=== PATIENT | male | born 1990 | race Caucasian/White ===

== ENCOUNTER 2016-04-23 19:54 | Emergency (ER) | payer MEDICAID ==
[2016-04-23 20:24] LABS: % IMMATURE GRANULYOCYTES 0.3 % (0.0-1.1); ABSOLUTE IMMATURE GRANULOCYTES 0.03 10^3/uL (0.00-0.10); ADD DIFF? NO; ADD MORPH? NO; ADD SCAN? NO; ATYPICAL LYMPHOCYTE FLAG 0 (0-99); FRAGMENT RBC FLAG 0 (0-99); HEMATOCRIT 44.7 % (40.0-51.0); HEMOGLOBIN 15.1 g/dL (13.7-17.5); LEFT SHIFT FLG 0 (0-99); LIPEMIA HEMOLYSIS FLAG 90 (0-99); MEAN CELL HEMOGLOBIN CONCENTR. 33.8 g/dL (32.4-36.7); MEAN CELL VOLUME 85.8 fL (81.5-99.8); MEAN PLATELET VOLUME 10.7 fL (8.7-11.7); PLATELET CLUMPS FLAG 0 (0-99); PLATELET COUNT 233 10^3/uL (150-400); RED BLOOD CELL COUNT 5.21 10^6/uL (4.40-6.38); RED CELL DISTRIBUTION WIDTH 14.3 % (11.5-15.2)
[2016-04-23 20:47] LABS: ANION GAP 13 mEq/L (8-16); CALCIUM 10.4 mg/dL (8.5-10.4); CARBON DIOXIDE 27 mEq/l (22-31); CHLORIDE 103 mEq/L (97-110); CREATININE 0.9 mg/dL (0.7-1.3); ETHANOL SERUM < 10 mg/dL (0-10); GLOMERULAR FILTRATION RATE > 60; GLUCOSE 95 mg/dL (70-100); POTASSIUM 4.2 mEq/L (3.5-5.2); SALICYLATE < 1.0 mg/dL (2.0-20.0); SODIUM 143 mEq/L (134-144)
--- NOTE | 2016-04-23 21:54 | EDPHY ---
H & P Stated Complaint: WANTS MENTAL HEALTH EVAL , NOT SUICIDAL ... - Personal History Current Tetanus/Diphtheria Vaccine: Yes Current Tetanus Diphtheria and Acellular Pertussis (TDAP): Yes - Medical/Surgical History Hx Asthma: No Hx Chronic Respiratory Disease: No Hx Diabetes: No Hx Cardiac Disease: No Hx Renal Disease: No Hx Cirrhosis: No Hx Alcoholism: No Hx HIV/AIDS: No Hx Splenectomy or Spleen Trauma: No Other PMH: PTSD, BIPOLAR MANIC DEPRESSIVE. psych - Social History Smoking Status: Heavy smoker Time Seen by Provider: 04/23/16 20:04 Constitutional: Initial Vital Signs Temperature (C) 36.9 C 04/23/16 19:58 Heart Rate 82 04/23/16 19:58 Respiratory Rate 18 04/23/16 19:58 Blood Pressure 148/94 H 04/23/16 19:58 O2 Sat (%) 98 04/23/16 19:58 O2 Delivery Mode Room Air Allergies/Adverse Reactions: No Known Allergies Allergy (Verified 04/23/16 20:00) Home Medications: Medication Instructions Recorded Divalproex ER [Depakote ER 500 MG 500 mg PO 04/01/16 (*)] Gabapentin [Neurontin 400 MG (*)] 900 mg PO BID 04/01/16 Haloperidol [Haldol 10 MG (*)] 10 mg PO 04/01/16 Propranolol HCl [Inderal 40mg (*)] 40 mg PO 04/01/16 Mirtazapine [Remeron] 45 mg PO 04/23/16 Quetiapine Fumarate [Seroquel] 200 mg PO 04/23/16 Medical Decision Making ED Course/Re-evaluation: CHIEF COMPLAINT: "I'm hendrix as hell" HISTORY OF PRESENT ILLNESS: The patient is a 25 y/o male, with a history of bipolar disorder and depression, presenting voluntarily for psychiatric evaluation due to aggressive outbursts. He says, "I don't understand my sudden outbursts at people;" "I want to get that under control." He is also asking for resources to a behavior center. He is taking some of his medications appropriately, but has not started some of the other medications he was prescribed. He denies suicidal ideation. Facility has reported they believe his psychiatric issues have become worse than his polysubstance abuse. REVIEW OF SYSTEMS: A 10 point review of systems was performed and is negative with the exception of the elements mentioned in the history of present illness. PHYSICAL EXAM: General Appearance: Alert, well hydrated, appropriate, and non-toxic appearing. Head: Atraumatic without scalp tenderness or obvious injury Eyes: Pupils equal, round, reactive to light and accommodation, EOMI, no trauma , no injection. Ears: Clear bilaterally, no perforation, normal landmarks Nose: Atraumatic, no rhinorrhea, clear. Throat: There is no erythema or exudates, no lesions, normal tonsils, mucus membranes moist. Neck: Supple, 2+ carotid upstroke, non-tender, no lymphadenopathy. Respiratory: No retractions, no distress, no wheezes, and no accessory muscle use. Lungs are clear to auscultation bilaterally. Cardiovascular: Regular rate and rhythm, no murmurs, rubs, or gallops. Bilateral carotid, radial, dorsalis pedis, and posterior tibial pulses intact. Good capillary refill all extremities. Gastrointestinal: Abdomen is soft, non-tender, non-distended, no masses, no rebound, no guarding, no peritoneal signs. Musculoskeletal: Normal active ROM of all extremities, atraumatic. Neurological: Alert, appropriate, and interactive. The patient has normal DTRs and non-focal cranial nerves, motor, sensory, and cerebellar exam. Skin: No rashes, good turgor, no nodules on palpation. PAST MEDICAL HISTORY: PTSD, polysubstance abuse, depression, bipolar disorder 1700mg gabapentin, 1500mg Depakote, IM Zyprexa monthly PAST SURGICAL HISTORY: Noncontributory SOCIAL HISTORY: History of homelessness and substance abuse, on [place] that requires him to be in psychiatric facility DIFFERENTIAL DIAGNOSIS: The differential diagnosis for the patient's depression included but was not limited to functional and major depression, situational depression, medication side effect, drugs, and alcohol abuse. MEDICAL DECISION MAKING: This is a 25 y/o male with a history of bipolar disorder, PTSD, and depression presenting for evaluation of his aggressive outbursts. Due to his homelessness, aggressive behavior, and reduced ability to care for himself, I've placed him on an M1 hold. Plan for standard psychiatric labs then mental health evaluation. His labs are completely normal. Patient is medically clear and evaluation is pending. 2300: Patient care signed out to Dr. Sethi at shift change with evaluation pending. (Akin Vazquez) 2344: Carmelo and has evaluated this patient. Patient is, cooperative. Patient is not suicidal he is not homicidal he is not psychotic is, cooperative he agrees for discharge contract for safety. Patient M1 hold be lifted and be discharged from the emergency room. (Esteban Sethi) - Data Points Laboratory Results: Laboratory Results 04/23/16 20:18 04/23/16 20:18 04/23/16 04/23/16 20:29 20:18 WBC 9.32 10^3/uL (3.80-9.50) RBC 5.21 10^6/uL (4.40-6.38) Hgb 15.1 g/dL (13.7-17.5) Hct 44.7 % (40.0-51.0) MCV 85.8 fL (81.5-99.8) MCH 29.0 pg (27.9-34.1) MCHC 33.8 g/dL (32.4-36.7) RDW 14.3 % (11.5-15.2) Plt Count 233 10^3/uL (150-400) MPV 10.7 fL (8.7-11.7) Neut % (Auto) 62.3 % (39.3-74.2) Lymph % (Auto) 25.0 % (15.0-45.0) [place] % (Auto) 10.7 % (4.5-13.0) Eos % (Auto) 0.9 % (0.6-7.6) Baso % (Auto) 0.8 % (0.3-1.7) Nucleat RBC Rel Count 0.0 % (0.0-0.2) Absolute Neuts (auto) 5.81 10^3/uL (1.70-6.50) Absolute Lymphs (auto) 2.33 10^3/uL (1.00-3.00) Absolute Monos (auto) 1.00 H 10^3/uL (0.30-0.80) Absolute Eos (auto) 0.08 10^3/uL (0.03-0.40) Absolute Basos (auto) 0.07 10^3/uL (0.02-0.10) Absolute Nucleated RBC 0.00 10^3/uL (0-0.01) Immature Gran % 0.3 % (0.0-1.1) Immature Gran # 0.03 10^3/uL (0.00-0.10) Sodium 143 mEq/L (134-144) Potassium 4.2 mEq/L (3.5-5.2) Chloride 103 mEq/L (97-110) Carbon Dioxide 27 mEq/l (22-31) Anion Gap 13 mEq/L (8-16) BUN 18 mg/dL (7-23) Creatinine 0.9 mg/dL (0.7-1.3) Estimated GFR > 60 Glucose 95 mg/dL (70-100) Calcium 10.4 mg/dL (8.5-10.4) Salicylates < 1.0 L mg/dL (2.0-20.0) Urine Opiates Screen NEGATIVE (NEGATIVE) Acetaminophen < 10 L mcg/mL (10.0-30.0) Urine Barbiturates NEGATIVE (NEGATIVE) Ur Phencyclidine Scrn NEGATIVE (NEGATIVE) Ur Amphetamine Screen NEGATIVE (NEGATIVE) U Benzodiazepines Scrn NEGATIVE (NEGATIVE) Urine Cocaine Screen NEGATIVE (NEGATIVE) U Marijuana (THC) Screen NEGATIVE (NEGATIVE) Ethyl Alcohol < 10 mg/dL (0-10) Departure - Departure Disposition: Home, Routine, Self-Care Clinical Impression: Severe major depression Condition: Good Instructions: Depression (ED) Additional Instructions: 1. Return to the emergency room if develops any worsening symptoms questions or concerns. 2.Please follow up with the resources been given to by mental health. Report Scribed for: Akin Vazquez Report Scribed by: Teresita Triplett Date of Report: 04/23/16 Time of Report: 22:10
[2016-04-23] MEDS ORDERED: DIVALPROEX NA 500 MG TAB PO ONE (22:32)
[2016-04-23] MEDS ORDERED: GABAPENTIN 300 MG CAP PO ONE (22:33)
[2016-04-24 00:15] VITALS: BP 135/89; PULSE 76; RESP 16; TEMP 98.2; O2SAT 97
[2016-04-24] MEDS ORDERED: QUEtiapine FUMARATE 200 MG TAB PO ONE (22:34)
== END 2016-04-24 00:20 | disposition home or self-care (01) ==
DX: F32.2 Major depressive disorder, single episode, severe without psychotic features (principal); F17.200 Nicotine dependence, unspecified, uncomplicated
CPT/HCPCS: 80305; G0480

== ENCOUNTER 2016-07-28 08:55 | Emergency (ER) | payer MEDICAID ==
[2016-07-28 09:05] VITALS: BP 130/74; PULSE 75; RESP 16; TEMP 97.9; O2SAT 97
--- NOTE | 2016-07-28 09:29 | EDPHY ---
H & P Time Seen by Provider: 07/28/16 09:10 HPI/ROS: CHIEF COMPLAINT: "I have got a lump on my back" HISTORY OF PRESENT ILLNESS: 26-year-old immunocompetent homeless male complaining of a tender lump in the cleft of his buttocks for the past 3-4 days. No pain with defecation. No fever no chills. No trauma. No flu-like symptoms. Tetanus is out-of-date. PRIMARY CARE PROVIDER: REVIEW OF SYSTEMS: A ten point review of systems was performed and is negative with the exception of the items mentioned in the HPI PHYSICAL EXAM (Prior to examination, patient consented to physical exam, hands were washed and my usual and customary physical exam procedures followed) 1) GENERAL: Well-developed, well-nourished, alert and oriented. Appears to be in no acute distress. 2) HEAD: Normocephalic 3) HEENT: sclera anicteric 4) LUNGS: Breathing comfortably. 5) SKIN: at the cleft of the buttock he has a tender indurated area with no fluctuance and no drainage consistent with pilonidal abscess. No extensions the perianal region Smoking Status: Heavy smoker Constitutional: Initial Vital Signs Temperature (C) 36.6 C 07/28/16 09:03 Heart Rate 75 07/28/16 09:03 Respiratory Rate 16 07/28/16 09:03 Blood Pressure 130/74 H 07/28/16 09:03 O2 Sat (%) 97 07/28/16 09:03 O2 Delivery Mode Room Air Allergies/Adverse Reactions: No Known Allergies Allergy (Verified 04/23/16 20:00) Home Medications: Medication Instructions Recorded Divalproex ER [Depakote ER 500 MG 500 mg PO BID 04/01/16 (*)] Gabapentin [Neurontin 400 MG (*)] 900 mg PO TID 04/01/16 Haloperidol [Haldol 10 MG (*)] 10 mg PO 04/01/16 Propranolol HCl [Inderal 40mg (*)] 40 mg PO 04/01/16 Mirtazapine [Remeron] 45 mg PO 04/23/16 Quetiapine Fumarate [Seroquel] 200 mg PO HS 04/23/16 Cephalexin [Keflex] 500 mg PO TID 10 Days 07/28/16 Sulfamethox/Tmp 800/160 mg 1 tab PO BID@1000,2200 10 Days 07/28/16 [Bactrim Ds] MDM/Departure - MDM Procedures: Procedure: Abscess drainage. The patient's abscess was located on the cleft of the buttocks. I obtained verbal consent from the patient to drain the abscess who was informed about the possibility of bleeding and pain. The abscess was incised with a 11. Scalpel and a mild amount of purulent drainage was expressed. I irrigated the wound . The patient tolerated the procedure well. The procedure was performed by myself. - Depart Disposition: Home, Routine, Self-Care Clinical Impression: Pilonidal abscess Condition: Good Instructions: Pilonidal Cyst (ED) Additional Instructions: Return to the ER if you develop fever, chills, nausea, vomiting or any other symptoms that concern you. Take her medication as prescribed until finished. Prescriptions: Cephalexin [Keflex] 500 mg PO TID 10 Days Sulfamethox/Tmp 800/160 mg [Bactrim Ds] 1 tab PO BID@1000,2200 10 Days Referrals: [facility],. [Clinic] - 1-2 days without fail
[2016-07-28] MEDS ORDERED: TDAP ADULT 0.5 ML INJ (BOOSTRIX) IM ONE (09:31)
== END 2016-07-28 09:46 | disposition home or self-care (01) ==
PROC: 3E0234Z Introduction of Serum, Toxoid and Vaccine into Muscle, Percutaneous Approach (ICD-10-PCS; principal; 2016-07-28)
PROC: 0H98XZZ Drainage of Buttock Skin, External Approach (ICD-10-PCS; principal; 2016-07-28)
DX: L05.01 Pilonidal cyst with abscess (principal); F17.200 Nicotine dependence, unspecified, uncomplicated; Z23 Encounter for immunization

== ENCOUNTER 2016-08-01 18:27 | Emergency (ER) | payer MEDICAID ==
[2016-08-01 18:31] VITALS: O2SAT 96
--- NOTE | 2016-08-01 19:14 | EDPHY ---
H & P Time Seen by Provider: 08/01/16 18:42 HPI/ROS: CHIEF COMPLAINT: Fevers, chills, rectal pain HISTORY OF PRESENT ILLNESS: 26-year-old male presents to the emergency department with pain and swelling to his rectum. The patient was here in the emergency department few days ago and was prescribed antibiotics. He did not fill the antibiotics until last night. He began feeling feverish and chilled 2 days ago. He took some aspirin prior to coming to the hospital. He denies abdominal pain. No urinary difficulties. Normal bowel movements. No chest pain or difficulty breathing. REVIEW OF SYSTEMS: Constitutional: No fever, no chills. Eyes: No double or blurry vision. ENT: No sore throat. Respiratory: No cough, no shortness of breath. Cardiac: No chest pain. Gastrointestinal: No abdominal pain, vomiting or diarrhea. Genitourinary: No dysuria. Musculoskeletal: No neck or back pain. Skin: No rashes. Neurological: No headache. Past Medical/Surgical History: Negative Social History: Single, works as a package car driver Smoking Status: Former smoker Physical Exam: General Appearance: Alert, no distress. Afebrile. Eyes: Pupils equal and round. Extraocular motions are all intact. ENT: Mouth: Mucous membranes moist. Respiratory: No wheezing, rhonchi, or rales, lungs are clear to auscultation. Cardiovascular: Regular rate and rhythm. Gastrointestinal: Abdomen is soft and nontender, no masses, no rebound or guarding, bowel sounds normal. Rectal exam: There is a perirectal abscess on the left buttock superior aspect. It is indurated. It is very tender to palpate. No obvious drainage noted. Neurological: Alert and oriented x 3, cranial nerves II through XII grossly intact Skin: Warm and dry, no rashes. Musculoskeletal: Nontender to palpate along the cervical, thoracic or lumbar spine. Neck is supple. Extremities: Full range of motion and no peripheral edema. Psychiatric: Patient is oriented X 3, there is no agitation. Constitutional: Initial Vital Signs Temperature (C) 36.7 C 08/01/16 18:28 Heart Rate 87 08/01/16 18:28 Respiratory Rate 18 08/01/16 18:28 Blood Pressure 133/70 H 08/01/16 18:28 O2 Sat (%) 96 08/01/16 18:28 O2 Delivery Mode Room Air Allergies/Adverse Reactions: No Known Allergies Allergy (Verified 04/23/16 20:00) Home Medications: Medication Instructions Recorded Divalproex ER [Depakote ER 500 MG 500 mg PO BID 04/01/16 (*)] Gabapentin [Neurontin 400 MG (*)] 900 mg PO TID 04/01/16 Mirtazapine [Remeron] 45 mg PO 04/23/16 Quetiapine Fumarate [Seroquel] 200 mg PO HS 04/23/16 Cephalexin [Keflex] 500 mg PO TID 10 Days 07/28/16 Sulfamethox/Tmp 800/160 mg 1 tab PO BID@1000,2200 10 Days 07/28/16 [Bactrim Ds] Wellbutrin Sr 08/01/16 Medical Decision Making Procedures: Procedure: Abscess drainage. The patient's abscess was located on the left buttock. Risks, benefits, alternatives discussed with the patient and consent obtained. The skin was cleansed with chlorhexidine and a small amount of 1% lidocaine with epinephrine was instilled into the wound. The abscess was incised with a #11 blade and large amount of purulent drainage was expressed. The patient tolerated the procedure well. The procedure was performed by myself. ED Course/Re-evaluation: 26-year-old male presents with rectal pain and feeling fever garcia chilled. On examination the patient has a left perirectal abscess which was opened and drained, see procedure note. The patient was encouraged to take the antibiotics as prescribed. He will continue to soak the wound and elected to do that rather than having packing. Departure - Departure Disposition: Home, Routine, Self-Care Clinical Impression: Perirectal abscess Condition: Good Instructions: Abscess (ED) Additional Instructions: Continue to soak your bottom in warm water for 15-20 minutes ideally every 2-3 hours especially today and tomorrow. Apply antibiotic ointment such as bacitracin, after each soaking. Take Keflex and Bactrim as prescribed. Call [phone] for the results of your wound culture in 48 hours. Referrals: [facility],. [Clinic] - 2-3 days, call for appt.
[2016-08-01 19:27] VITALS: BP 127/81; PULSE 75; RESP 16; TEMP 98.2
== END 2016-08-01 19:27 | disposition home or self-care (01) ==
PROC: 0H98XZZ Drainage of Buttock Skin, External Approach (ICD-10-PCS; principal; 2016-08-01)
DX: K61.1 Rectal abscess (principal); Z87.891 Personal history of nicotine dependence

== ENCOUNTER 2016-09-20 20:16 | Emergency (ER) | payer MEDICAID ==
[2016-09-20 20:36] LABS: % IMMATURE GRANULYOCYTES 0.2 % (0.0-1.1); ABSOLUTE IMMATURE GRANULOCYTES 0.01 10^3/uL (0.00-0.10); ADD DIFF? NO; ADD MORPH? NO; ADD SCAN? NO; ATYPICAL LYMPHOCYTE FLAG 30 (0-99); FRAGMENT RBC FLAG 0 (0-99); HEMATOCRIT 45.1 % (40.0-51.0); HEMOGLOBIN 15.3 g/dL (13.7-17.5); LEFT SHIFT FLG 0 (0-99); LIPEMIA HEMOLYSIS FLAG 90 (0-99); MEAN CELL HEMOGLOBIN 29.9 pg (27.9-34.1); MEAN CELL HEMOGLOBIN CONCENTR. 33.9 g/dL (32.4-36.7); MEAN CELL VOLUME 88.1 fL (81.5-99.8); MEAN PLATELET VOLUME 11.2 fL (8.7-11.7); PLATELET CLUMPS FLAG 0 (0-99); PLATELET COUNT 218 10^3/uL (150-400); RED BLOOD CELL COUNT 5.12 10^6/uL (4.40-6.38); RED CELL DISTRIBUTION WIDTH 13.7 % (11.5-15.2)
[2016-09-20 20:46] LABS: ANION GAP 12 mEq/L (8-16); CALCIUM 9.7 mg/dL (8.5-10.4); CARBON DIOXIDE 24 mEq/l (22-31); CHLORIDE 102 mEq/L (97-110); ETHANOL SERUM < 10 mg/dL (0-10); GLOMERULAR FILTRATION RATE > 60; GLUCOSE 95 mg/dL (70-100); POTASSIUM 3.9 mEq/L (3.5-5.2); SALICYLATE < 1.0 mg/dL (2.0-20.0); SODIUM 138 mEq/L (134-144)
--- NOTE | 2016-09-20 21:35 | EDPHY ---
H & P Stated Complaint: SI - Personal History Current Tetanus/Diphtheria Vaccine: Yes - Medical/Surgical History Hx Asthma: No Hx Chronic Respiratory Disease: No Hx Diabetes: No Hx Cardiac Disease: No Hx Renal Disease: No Hx Cirrhosis: No Hx Alcoholism: No Hx HIV/AIDS: No Hx Splenectomy or Spleen Trauma: No Other PMH: PTSD, BIPOLAR MANIC DEPRESSIVE,. psych, anxiety, - Social History Smoking Status: Former smoker HPI/ROS: Chief complaint: Suicidal ideation History of present illness: This is a 26-year-old male who presents to the emergency department with EMS for suicidal ideation. Patient has a history of multiple psychiatric disorders including anxiety, bipolar and PTSD. He states he has had problems with suicidal ideation in the past. He states he feels like his underlying conditions are not well controlled at this time, he has started having thoughts of killing himself. He has thought about cutting his wrists or taking medications but has not acted at this time. Patient denies homicidal ideation. He denies illness or injury. Review of systems: A 10 point review of systems was obtained and other than described above was negative (Naveed Garsia) - Physical Exam Exam: General Appearance: Alert, nontoxic. Eyes: Pupils equal and round no pallor or injection. ENT, Mouth: Mucous membranes moist. Respiratory: There are no retractions, lungs are clear to auscultation. Cardiovascular: Regular rate and rhythm. Gastrointestinal: Abdomen is soft and nontender, no masses, bowel sounds normal. Neurological: Alert. Strength and sensation intact and symmetrical. Skin: Warm and dry, no rashes. Musculoskeletal: Neck is supple nontender. Extremities are symmetrical, full range of motion. Psychiatric: Patient is cooperative. (Naveed Garsia) Constitutional: Initial Vital Signs Temperature (C) 37.1 C 09/20/16 20:24 Heart Rate 64 09/20/16 20:24 Respiratory Rate 18 09/20/16 20:24 Blood Pressure 155/76 H 09/20/16 20:24 O2 Sat (%) 95 09/20/16 20:24 O2 Delivery Mode Room Air Allergies/Adverse Reactions: No Known Allergies Allergy (Verified 04/23/16 20:00) Home Medications: Medication Instructions Recorded Divalproex ER [Depakote ER 500 MG 1,000 mg PO HS 04/01/16 (*)] Gabapentin [Neurontin 400 MG (*)] 900 mg PO TID 04/01/16 Wellbutrin Sr 08/01/16 FLUoxetine [Prozac 20 MG (*)] 20 mg PO DAILY 09/20/16 traZODone [traZODONE 50MG (*)] 50 mg PO HS 09/20/16 Medical Decision Making ED Course/Re-evaluation: Patient seen under the supervision of my secondary supervising physician Dr. Larissa Cerna. Patient presents to the emergency department for suicidal ideation. He is nontoxic. Afebrile and vital signs are stable. Physical exam is benign and blood studies are unremarkable. He is medically cleared for psychiatric evaluation. This is pending at time of dictation. Care of patient is turned over to my attending physician Dr. Esteban Sethi at end of shift. (Naveed Garsia) 0541AM: Patient has been accepted at [facility]. By Dr. Arnold. EMTALA has been filled out. Appropriate transfer will be set up. No acute events overnight. (Esteban Sethi) Differential Diagnosis: Included but not limited to substance abuse, anxiety, depression, bipolar, schizophrenia (Naveed Garsia) - Data Points Laboratory Results: Laboratory Results 09/20/16 20:25 09/20/16 20:25 09/20/16 09/20/16 09/20/16 20:25 20:25 20:25 WBC 6.24 10^3/uL 10^3/uL (3.80-9.50) RBC 5.12 10^6/uL 10^6/uL (4.40-6.38) Hgb 15.3 g/dL g/dL (13.7-17.5) Hct 45.1 % % (40.0-51.0) MCV 88.1 fL fL (81.5-99.8) MCH 29.9 pg pg (27.9-34.1) MCHC 33.9 g/dL g/dL (32.4-36.7) RDW 13.7 % % (11.5-15.2) Plt Count 218 10^3/uL 10^3/uL (150-400) MPV 11.2 fL fL (8.7-11.7) Neut % (Auto) 52.5 % % (39.3-74.2) Lymph % (Auto) 35.1 % % (15.0-45.0) [place] % (Auto) 8.5 % % (4.5-13.0) Eos % (Auto) 2.7 % % (0.6-7.6) Baso % (Auto) 1.0 % % (0.3-1.7) Nucleat RBC Rel Count 0.0 % % (0.0-0.2) Absolute Neuts (auto) 3.28 10^3/uL 10^3/uL (1.70-6.50) Absolute Lymphs (auto) 2.19 10^3/uL 10^3/uL (1.00-3.00) Absolute Monos (auto) 0.53 10^3/uL 10^3/uL (0.30-0.80) Absolute Eos (auto) 0.17 10^3/uL 10^3/uL (0.03-0.40) Absolute Basos (auto) 0.06 10^3/uL 10^3/uL (0.02-0.10) Absolute Nucleated RBC 0.00 10^3/uL 10^3/uL (0-0.01) Immature Gran % 0.2 % % (0.0-1.1) Immature Gran # 0.01 10^3/uL 10^3/uL (0.00-0.10) Sodium 138 mEq/L mEq/L (134-144) Potassium 3.9 mEq/L mEq/L (3.5-5.2) Chloride 102 mEq/L mEq/L (97-110) Carbon Dioxide 24 mEq/l mEq/l (22-31) Anion Gap 12 mEq/L mEq/L (8-16) BUN 15 mg/dL mg/dL (7-23) Creatinine 1.0 mg/dL mg/dL (0.7-1.3) Estimated GFR > 60 Glucose 95 mg/dL mg/dL (70-100) Calcium 9.7 mg/dL mg/dL (8.5-10.4) Salicylates < 1.0 mg/dL L mg/dL (2.0-20.0) Urine Opiates Screen NEGATIVE (NEGATIVE) Acetaminophen < 10 mcg/mL L mcg/mL (10.0-30.0) Urine Barbiturates NEGATIVE (NEGATIVE) Valproic Acid 42.2 mcg/mL L mcg/mL (50.0-150.0) Ur Phencyclidine Scrn NEGATIVE (NEGATIVE) Ur Amphetamine Screen NEGATIVE (NEGATIVE) U Benzodiazepines Scrn NEGATIVE (NEGATIVE) Urine Cocaine Screen NEGATIVE (NEGATIVE) U Marijuana (THC) Screen NEGATIVE (NEGATIVE) Ethyl Alcohol < 10 mg/dL mg/dL (0-10) Departure - Departure Disposition: Other Psych, Not [place] Clinical Impression: Suicidal ideation Condition: Fair Referrals: NONE *PRIMARY CARE P,. [Primary Care Provider] - As per Instructions
[2016-09-21 07:23] VITALS: BP 112/78; PULSE 76; RESP 16; TEMP 97.5; O2SAT 98
== END 2016-09-21 07:39 ==
LOC: EDUNIT#
DX: R45.851 Suicidal ideations (principal); Z87.891 Personal history of nicotine dependence
CPT/HCPCS: 80305; G0480

== ENCOUNTER 2016-12-26 13:27 | Emergency (ER) | payer MEDICAID ==
[2016-12-26 13:32] VITALS: BP 136/70; PULSE 71; RESP 16; TEMP 97.9; O2SAT 95
--- NOTE | 2016-12-26 13:58 | EDPHY ---
H & P Smoking Status: Former smoker Time Seen by Provider: 12/26/16 13:36 HPI/ROS: CHIEF COMPLAINT: Fall off skateboard, left wrist and left knee injury HISTORY OF PRESENT ILLNESS: 26-year-old male presents to the emergency department with pain in his left wrist and his left knee after he fell off his skateboard at noon yesterday. He was not wearing a helmet. He did not hit his head or lose consciousness. Denies neck or back pain. Denies chest pain or difficulty breathing. He is right-hand dominant. He states that he developed more pain in his left wrist and his left knee few hours after he actually fell. Denies paresthesias in his upper or lower extremities. Denies abdominal pain. He believes his tetanus shot is current. REVIEW OF SYSTEMS: Constitutional: No fever, no chills. Eyes: No double or blurry vision. ENT: No sore throat. Respiratory: No cough, no shortness of breath. Cardiac: No chest pain. Gastrointestinal: No abdominal pain, vomiting or diarrhea. Genitourinary: No dysuria. Musculoskeletal: No neck or back pain. Skin: No rashes. Neurological: No headache. (Louisa,Samantha M) Past Medical/Surgical History: PTSD, bipolar, anxiety (Louisa,Samantha M) Social History: Single (Louisa,Samantha M) Physical Exam: General Appearance: Alert, no distress. No visible signs of trauma to his head. He is mentating normally and answering questions appropriately. Eyes: Pupils equal and round. Extraocular motions are all intact. ENT: Mouth: Mucous membranes moist. Respiratory: No wheezing, rhonchi, or rales, lungs are clear to auscultation. Cardiovascular: Regular rate and rhythm. Gastrointestinal: Abdomen is soft and nontender, no masses, no rebound or guarding, bowel sounds normal. Neurological: Alert and oriented x 3, cranial nerves II through XII grossly intact Skin: Warm and dry, no rashes. Musculoskeletal: Nontender to palpate along the cervical, thoracic or lumbar spine. Neck is supple. Ecchymosis to the anterior, lateral aspect of his neck which the patient states is a "hickey" Extremities: Tender with palpation over his left wrist diffusely especially over the distal ulna. Limited supination secondary to pain. Limited extension of the left wrist secondary to pain. Has superficial abrasions noted to the anterior aspect of his left knee. Diffusely tender to palpate the left knee. No obvious effusion. He is able to do a straight leg raise unassisted. He is able to fully flex his left knee. No obvious ligament instability. Full range of motion of his right upper extremity and right lower extremity. Psychiatric: Patient is oriented X 3, there is no agitation. The (Samantha Jasso) Constitutional: Initial Vital Signs Temperature (C) 36.6 C 12/26/16 13:29 Heart Rate 71 12/26/16 13:29 Respiratory Rate 16 12/26/16 13:29 Blood Pressure 136/70 H 12/26/16 13:29 O2 Sat (%) 95 12/26/16 13:29 O2 Delivery Mode Room Air Allergies/Adverse Reactions: No Known Allergies Allergy (Verified 04/23/16 20:00) Home Medications: Medication Instructions Recorded Divalproex ER [Depakote ER 500 MG 1,000 mg PO HS 04/01/16 (*)] Gabapentin [Neurontin 400 MG (*)] 900 mg PO TID 04/01/16 Wellbutrin Sr 08/01/16 FLUoxetine [Prozac 20 MG (*)] 20 mg PO DAILY 09/20/16 traZODone [traZODONE 50MG (*)] 50 mg PO HS 09/20/16 Celexa 12/26/16 Medical Decision Making - Diagnostics Imaging: I viewed and interpreted images myself Procedures: Patient was placed in Velcro wrist splint and examined post application in good placement with normal SEALER OPERATOR. (Samantha Jasso) ED Course/Re-evaluation: 26-year-old male presents to the emergency department after he fell off his skateboard injuring his left wrist and knee. X-rays reveal no fractures. He was placed in Velcro wrist splint for comfort and support. He is able to ambulate. I do not think knee brace is indicated. He was given orthopedic follow-up. (Samantha Jasso) I did not see this patient while he was in the emergency department. However his care was discussed with the PA while the patient was in the department. I agree with treatment plan and management (Homer Tabares) Departure - Departure Disposition: Home, Routine, Self-Care Clinical Impression: Left wrist sprain, Contusion of left knee, Abrasion of left knee Condition: Good Instructions: Contusion in Adults (ED), Wrist Sprain (ED) Additional Instructions: Activity as tolerated. Wrist splint for comfort and support. Ibuprofen 600 mg every 8 hours as needed for pain. Referrals: Wesley Schwab MD [Medical Doctor] - 2-3 days, call for appt. (Orthopedic surgeon on-call) Stand Alone Forms: Work Excuse
== END 2016-12-26 14:44 | disposition home or self-care (01) ==
DX: S63.502A Unspecified sprain of left wrist, initial encounter (principal); S80.02XA Contusion of left knee, initial encounter; S80.212A Abrasion, left knee, initial encounter; Z87.891 Personal history of nicotine dependence; V00.131A Fall from skateboard, initial encounter; Y99.8 Other external cause status; Y93.51 Activity, roller skating (inline) and skateboarding
CPT/HCPCS: L3908

== ENCOUNTER 2017-03-01 10:51 | Day surgery (SDC) | payer MEDICAID ==
[2017-03-01 11:44] VITALS: PULSE 53
[2017-03-01] MEDS ORDERED: LR 1,000 ML IV ONE (11:44)
[2017-03-01] MEDS ORDERED: LR 500 ML IV PRN (11:46)
[2017-03-01] MEDS ORDERED: NALOXONE HCL 0.4 MG/ML INJ IVP PRN (11:46)
[2017-03-01] MEDS ORDERED: ONDANSETRON 4 MG/2 ML VIAL IVP PRN (11:46)
[2017-03-01] MEDS ORDERED: ALBUTEROL 3 ML DEYVIAL IH PRN (11:46)
--- NOTE | 2017-03-01 11:46 | PDANEPAE ---
ANE Past Medical History - Cardiovascular History Hx Hypertension: No Hx Arrhythmias: No Hx Chest Pain: No Hx Coronary Artery / Peripheral Vascular Disease: No Hx CHF / Valvular Disease: No Hx Palpitations: No - Pulmonary History Hx COPD: No Hx Asthma/Reactive Airway Disease: No Hx Recent Upper Respiratory Infection: No Hx Oxygen in Use at Home: No Hx Sleep Apnea: No Sleep Apnea Screening Result - Last Documented: Negative - Neurologic History Hx Cerebrovascular Accident: No Hx Seizures: No Hx Dementia: No - Endocrine History Hx Diabetes: No - Renal History Hx Renal Disorders: No - Liver History Hx Hepatic Disorders: No - Neurological & Psychiatric Hx Hx Neurological and Psychiatric Disorders: Yes Neurological / Psychiatric History Comment: ptsd. depression. bipolar 2 - Cancer History Hx Cancer: No - Congenital Disorder History Hx Congenital Disorders: No - GI History Hx Gastrointestinal Disorders: No - Other Health History Other Health History: wears glasses - Chronic Pain History Chronic Pain: No - Surgical History Prior Surgeries: na ANE Review of Systems Review of Systems: - Exercise capacity METS (RN): 4 METS ANE Patient History - Allergies Allergies/Adverse Reactions: No Known Allergies Allergy (Verified 02/22/17 10:44) - Home Medications Home Medications: Divalproex ER [Depakote ER 500 MG (*)] 04/01/16 [Last Taken 03/01/17] Gabapentin [Neurontin 400 MG (*)] 04/01/16 [Last Taken 03/01/17] Wellbutrin Sr 08/01/16 [Last Taken 03/01/17] - NPO status NPO Since - Liquids (Date): 03/01/17 NPO Since - Liquids (Time): 06:00 NPO Since - Solids (Date): 02/28/17 NPO Since - Solids (Time): 06:00 - Smoking Hx Smoking Status: Current some day smoker - Family Anes Hx Family Hx Anesthesia Complications: none ANE Labs/Vital Signs - Vital Signs Blood Pressure: 131/72 Heart Rate: 53 Respiratory Rate: 16 O2 Sat (%): 96 Height: 190.5 cm Weight: 99.79 kg ANE Physical Exam - Airway Neck exam: FROM Mallampati Score: Class 1 Mouth exam: normal dental/mouth exam - Pulmonary Pulmonary: no respiratory distress, no rales or rhonchi, clear to auscultation - Cardiovascular Cardiovascular: regular rate and rhythym, no murmur, rub, or gallop, pulses symmetric bilaterally - ASA Status ASA Status: II ANE Anesthesia Plan Anesthesia Plan: GA with mask
--- NOTE | 2017-03-01 11:51 | PDGENHP ---
History & Physical Chief Complaint: diarreha wiht blood History of Present Illness: months of blood diarrhea Pertinent Past, Social, Family History: +tobacco daily. no alcohol. no fhx IBD or CC Relevant Physical Exam: A+Ox3. CTA. S1,S2 Cardiorespiratory Assessment: class 2 pt
--- NOTE | 2017-03-01 12:19 | POSTOPPROG ---
Post Op Note Date of Operation: 03/01/17 Surgeon: Manuel Briceno Anesthesiologist: meenakshi Anesthesia: Other (Specify) (IV general) Pre-op Diagnosis: diarrhea wiht blood Post-op Diagnosis: two rectal polyps, mild eryhtema in distal rectum, o/w nml Indication: diarrhe with blood Procedure: colon and bx and snare Findings: 6mm and 2 mm rectal polyps, mild eryhtema at distal rectum o/w nml Inf/Abcess present in the surg proc area at time of surgery?: No EBL: Minimal (few ml from bx) Total fluids administered: 350 ml LR Complications: none immediate
--- NOTE | 2017-03-01 12:29 | GIREPORT ---
[facility] Surgical Services - Endoscopy Department Patient Name: Severino Baires Procedure Date: 03/01/2017 11:47 AM Patient Type: Outpatient Attending MD/ ER Physician: Chris Doshi Procedure: Colonoscopy Indications: Clinically significant diarrhea of unexplained origin, Hematochezia Providers: Adeel Briceno MD Medicines: Sedation Required Anesthesia Staff Assistance Complications: No immediate complications. Estimated blood loss: Minimal. Description of Procedure: After obtaining informed consent, the scope was passed under direct vis ion. Throughout the procedure, the patient's blood pressure, pulse, and oxyg en saturations were monitored continuously. The Colonoscope with irrigatio n channel was introduced through the anus and advanced to the terminal il eum, with identification of the appendiceal orifice and IC valve. The colono scopy was performed without difficulty. The patient tolerated the procedure w ell. The quality of the bowel preparation was good. Findings: The digital rectal exam was normal. The terminal ileum appeared normal. The sigmoid colon, descending colon, transverse colon, ascending colon and cecum appeared normal. Biopsies for histology were taken with a cold fo rceps from the cecum, ascending colon, transverse colon, descending colon and sigmoid colon for evaluation of microscopic colitis. Estimated blood lo ss was minimal. A 2 mm polyp was found in the rectum. The polyp was sessile. The polyp was removed with a cold biopsy forceps. Resection and retrieval were comple te. Estimated blood loss was minimal. A 6 mm polyp was found in the rectum. The polyp was sessile. The polyp was removed with a cold snare. Resection and retrieval were complete. Estim ated blood loss was minimal. A localized area of mildly erythematous and qbblqsjl-didifyl-bbahanwev mucosa was found in the distal rectum. Biopsies were taken with a cold forceps for histology. Estimated blood loss was minimal. Non-bleeding internal hemorrhoids were found. The exam was otherwise without abnormality. Estimated Blood Loss: Estimated blood loss was minimal. Post Op Diagnosis: - The examined portion of the ileum was normal. - The sigmoid colon, descending colon, transverse colon, ascending colo n and cecum are normal. Biopsied. - One 2 mm polyp in the rectum, removed with a cold biopsy forceps. Res ected and retrieved. - One 6 mm polyp in the rectum, removed with a cold snare. Resected and retrieved. - Erythematous and egrpjedr-lwdyvcs-jlpixkpck mucosa in the distal rect um. Biopsied. - Non-bleeding internal hemorrhoids. - The examination was otherwise normal. Recommendation: - Await pathology results. - My office will call with the pathology result with 5-7 days. If you h ave not heard from my office by -14, do not assume the pathology is alfonso l, please call [phone] to get the pathology results. - If the pathology report reveals no adenomatous tissue, then repeat th e colonoscopy for screening purposes age 52. - Discharge patient to home (ambulatory). - Patient has a contact number available for emergencies. The signs and symptoms of potential delayed complications were discussed with the pat ient. Return to normal activities tomorrow. Written discharge instructions we re provided to the patient. - Continue present medications. - Return to primary care physician as previously scheduled. - Return to GI clinic PRN. If symptoms resolve and no IBD noted on pathology, then no f/u needed. - Thank you for allowing me to help in your patient's care. Do not hesi wright to call with any questions. Attending Participation: I personally performed the entire procedure. Kaity Denis M.D Adeel Briceno MD 03/01/2017 12:28:30 PM This report has been signed electronicallyMathew MD Kaity Number of Addenda: 0 Note Initiated On: 03/01/2017 11:47 AM Total Procedure Duration Time 0 hours 20 minutes 21 seconds [email or web address]
--- NOTE | 2017-03-01 12:33 | POSTANESTH ---
Post Anesthetic Evaluation Cardiovascular Status: Normal, Stable Respiratory Status: Normal, Stable Level of Consciousness/Mental Status: Can Participate in Eval Pain Control: Adequate, Prn Tx Ordered Nausea/Vomiting Control: Adequate, Prn Tx Ordered Complications Possibly Related to Anesthesia: None Noted
[2017-03-01 12:41] VITALS: RESP 19
[2017-03-01 13:06] VITALS: BP 105/74; O2SAT 97
[2017-03-01 14:27] VITALS: TEMP 97.7
== END 2017-03-01 13:15 | disposition home or self-care (01) ==
LOC: FSGY 10:51
PROVIDERS: ATTEND Internal Medicine Gastroenterology
DX: K62.1 Rectal polyp (principal); K64.9 Unspecified hemorrhoids

== ENCOUNTER 2018-01-07 23:20 | Inpatient (IN) | payer MEDICAID, OTHER ==
[2018-01-08 00:11] LABS: PLATELET COUNT 243 10^3/uL (150-400)
--- NOTE | 2018-01-08 06:55 | EDPHY ---
H & P Stated Complaint: SI, OD ON MEDS Source: Patient Exam Limitations: No limitations - Personal History Current Tetanus Diphtheria and Acellular Pertussis (TDAP): Yes - Medical/Surgical History Hx Asthma: No Hx Chronic Respiratory Disease: No Hx Diabetes: No Hx Cardiac Disease: No Hx Renal Disease: No Hx Cirrhosis: No Hx Alcoholism: No Hx HIV/AIDS: No Hx Splenectomy or Spleen Trauma: No Other PMH: PTSD, BIPOLAR MANIC DEPRESSIVE,. psych, anxiety, - Social History Smoking Status: Current some day smoker Time Seen by Provider: 01/07/18 23:47 HPI/ROS: HPI The patient presents with suicidal ideation with plan to overdose on his medication. He says that he has been feeling suicidal for the last 3 weeks though has been delaying his evaluation here in the emergency department he because he knew he would be placed on a mental health hold. Says at this point he feels so uncomfortable at home he no longer wants to feel this way and comes in asking for help. He did not actually overdose on any of his medications, however does feel like he might. He has a history of 2 prior suicide attempts by ingesting pills. He currently is compliant with his Wellbutrin and gabapentin. He says he generally feels hopeless over the last several weeks. He has been admitted to mental health hospitals previously. REVIEW OF SYSTEMS 10 systems were reviewed and negative with the exception of the elements mentioned in the history of present illness. PMHx: Reported history of schizoaffective disorder and bipolar disorder Soc Hx: Lives with his girlfriend in school at [employer], denies alcohol or drug use PHYSICAL General Appearance: Alert, no distress Eyes: Pupils equal and round no pallor or injection ENT, Mouth: Mucous membranes moist Respiratory: There are no retractions, lungs are clear to auscultation Cardiovascular: Regular rate and rhythm Gastrointestinal: Abdomen is soft and non-tender, no masses, bowel sounds normal Neurological: A&O, moves all extremities Skin: Warm and dry, no rashes Musculoskeletal: Neck is supple non tender Extremities: symmetrical, full range of motion Psychiatric: Patient is oriented X 3, there is no agitation (KatheiIsaura) Constitutional: Initial Vital Signs Temperature (C) 36.3 C 01/07/18 23:26 Heart Rate 62 01/07/18 23:26 Respiratory Rate 16 01/07/18 23:26 Blood Pressure 120/82 H 01/07/18 23:26 O2 Sat (%) 98 01/07/18 23:26 O2 Delivery Mode Room Air Allergies/Adverse Reactions: No Known Allergies Allergy (Verified 01/08/18 13:25) Home Medications: Medication Instructions Recorded busPIRone [Buspar (*)] 15 mg PO TID 01/08/18 Acetaminophen [Tylenol 325mg (*)] 650 mg PO Q4HRS PRN tab 01/10/18 Gabapentin [Neurontin] 800 mg PO TID 30 Days #90 tablet 01/10/18 Nicotine Polacrilex [Nicorette gum 2 mg B Q1HR PRN gum 01/10/18 (*)] Venlafaxine Xr [Effexor Xr 75MG 75 mg PO DAILY 30 Days #30 cap 01/10/18 (*)] Medical Decision Making Differential Diagnosis: 27-year-old male with past psychiatric history with prior suicide attempts with [place] presents from home with suicidal ideation with plan to overdose on his medications. He has not actually attempted this. On exam he is generally well- appearing and cooperative. As he denies any other complaints. We will check basic labs. In the emergency department, the patient was stable. He slept for much of the night. His labs were unremarkable. He will be evaluated by the mental health worker this morning. Differential diagnoses considered include suicidal ideation due to underlying bipolar disorder, substance abuse, acute stress response. At 7:00 a.m., the case is signed out to the oncoming provider Dr. Juares. Patient await mental health evaluation and is medically clear. (Isaura Javier) I assumed care of this patient at 7:00 a.m.. Mental health evaluation has been completed. I was notified that he has been accepted at [address] [place] [address]. EMTALA form completed. (Shelly Juares) - Data Points Laboratory Results: Laboratory Results 01/08/18 00:00 01/08/18 00:00 Medications Given: Buspirone HCl (Buspar) 15 mg PO TID [facility] Stop: 07/07/18 15:59 Last Admin: 01/10/18 08:51 Dose: 15 mg Gabapentin (Neurontin) 800 mg PO TID [facility] Stop: 07/07/18 15:59 Last Admin: 01/10/18 08:51 Dose: 800 mg Nicotine Polacrilex (Nicorette) 2 mg B Q1HR PRN PRN Reason: Nicotine withdrawal Stop: 07/07/18 15:47 Last Admin: 01/10/18 12:38 Dose: 2 mg Venlafaxine HCl (Effexor Xr) 75 mg PO DAILY [facility] Stop: 07/09/18 08:59 Last Admin: 01/10/18 08:51 Dose: 75 mg Discontinued Medications Bupropion HCl (Wellbutrin Xl) 150 mg PO DAILY [facility] Stop: 07/08/18 08:59 Last Admin: 01/09/18 11:19 Dose: 150 mg Gabapentin (Neurontin) 600 mg PO TID [facility] Stop: 07/07/18 15:59 Last Admin: 01/09/18 11:18 Dose: 600 mg Venlafaxine HCl (Effexor Xr) 75 mg PO ONCE ONE Stop: 01/09/18 13:25 Last Admin: 01/09/18 13:54 Dose: 75 mg Departure - Departure Disposition: [facility] IP Clinical Impression: Suicidal ideation Condition: Good
--- NOTE | 2018-01-08 13:34 | GCON ---
DATE OF CONSULTATION: 01/08/2018 HISTORY OF PRESENT ILLNESS: The patient is a 27-year-old gentleman with schizoaffective disorder who presents to the emergency department with several weeks suicidality. He is currently on an M1 hold. When I speak with the patient, he is pleasant. He is alert and oriented. He denies any significant past medical history. He did have a colonoscopy about a year ago for blood in his stool with unremar kable results, including biopsies of hyperplastic polyps. He has had no further blood in his stool. He has been working odd jobs with manual labor. He complains of a little bit of low back pain, but no urinary or fecal incontinence, and no lower extremity weakness. He has not had fever, chills, cough, sputum, nausea, vomiting, diarrhea. REVIEW OF SYSTEMS: Complete 10-point review of systems conducted negative, except as noted in the HP I. PAST MEDICAL HISTORY: Schizoaffective disorder. ALLERGIES: No known drug allergies. HOME MEDICATIONS: No medications. SOCIAL HISTORY: No tobacco. No alcohol. FAMILY HISTORY: Reviewed and unremarkable. PHYSICAL EXAMINATION: VITAL SIGNS: Temp 36.3, blood pressure 120/82, pulse 62, breathing 16 times a minute, 98% on room air. GENERAL: In no acute distress. HEENT: Sclerae anicteric. Oropharynx cl ear. Mucous membranes moist. NECK: Supple. No lymphadenopathy or JVD. LUNGS: Clear to auscultat ion bilaterally. HEART: S1, S2. ABDOMEN: Soft, nontender, nondistended. LOWER EXTREMITIES: With out edema. Calves nontender. SKIN: Without rash. NEUROLOGIC: Nonfocal. LABORATORY DATA: Tox screen negative. Chem-7, LFTs normal. CBC normal. I have discussed the case with Dr. Shelly Juares, covering ER doctor. ASSESSMENT/PLAN: 27-year-old gentleman with schizoaffective disorder, here with suicidality. 1. Suicidality. Management per Psychiatry. 2. Low back pain. This does not raise any red flag signs. 3. Blood in stool. The patient is no longer anemic. 4. Hypertension. This is mild. Will follow. This is a common finding in this setting. DISPOSITION: To Behavioral Health. Thank you this consultation. Hospital Medicine will not follow. /[id number]/MODL
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
--- NOTE | 2018-01-08 14:11 | ASMTTCLDSP ---
TLC Discharge Disposition Disposition: Answers: Admit Discharge Concerns/Recommendations: Notes: In consultation with [facility] ED physician, Dr Chris Juares MD ,and on-call psychiatrist, Dr Abel Hardin MD, both concurred that Pt appears to meet 27-65 criteria requiring psychiatric hospitalization as Pt appears to be at risk of harm to self due to a mental illness condition. Pt was given the 3[facility] prohibited belongings list while in the ED. Was patient given the Answers: Yes Inpatient Behavioral Health Prohibited Belongings List while in the ED? For inpatient Dr Abel Hardin MD admission, the following psychiatrist agreed to accept patient for admission to Behavioral Health ([facility]): Type of Hold: Answers: M1/72-hour Hold Hold initiated by: Answers: ED Physician Date Signed: 01/08/2018 02:11 PM Electronically Signed By:Lotus Esparza
[2018-01-08] MEDS ORDERED: LORazepam 0.5 MG TAB PO PRN (15:48)
[2018-01-08] MEDS ORDERED: OLANZapine DISINTEGR 10 MG TAB PO PRN (15:48)
[2018-01-08] MEDS ORDERED: MAG HYDROX/AL HYDROX/SIMETH 30 ML UDCUP PO PRN (15:48)
[2018-01-08] MEDS ORDERED: MAGNESIUM HYDROXIDE 30 ML UDCUP PO PRN (15:48)
[2018-01-08] MEDS ORDERED: ACETAMINOPHEN 325 MG TAB PO PRN (15:48)
[2018-01-08] MEDS: busPIRone 15 MG TAB PO SCH ×2 (16:07→19:58)
[2018-01-08] MEDS: GABAPENTIN 300 MG CAP PO SCH ×2 (16:07→19:58)
--- NOTE | 2018-01-08 17:03 | PDMN ---
Medical Necessity [place] [facility] [id number] Schizophrenia Spectrum Disorders, Adult: Inpatient Care, 27 yo w/ suicidal ideation, M1 hold, schizoaffective d/o, depressive type
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
--- NOTE | 2018-01-09 08:52 | ASMTCMCOM ---
CM Note CM Note Notes: CC sent referral ppw to [facility], waiting to hear back. Completed MTP, etc. Client denies any feelings of depression, SI-HI, AVH; however, noted that he feels his anxiety would be a 1/10. Noted, that he as out-side providers through [facility] and support network with girlfriend, etc. Date Signed: 01/09/2018 08:51 AM Electronically Signed By:Rohith Schroeder
[2018-01-09] MEDS ORDERED: buPROPion XL 150 MG TAB PO SCH (09:00)
[2018-01-09] MEDS: GABAPENTIN 300 MG CAP PO SCH (11:18)
[2018-01-09] MEDS: busPIRone 15 MG TAB PO SCH ×3 (11:18→20:39)
[2018-01-09] MEDS ORDERED: VENLAFAXINE XR 75 MG CAP PO ONE (13:24)
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
[2018-01-09 16:33] LABS: HEPATITIS C ANTIBODY TOTAL NEGATIVE (NEGATIVE); HIV TYPE 1 AND 2 NEGATIVE (NEGATIVE)
[2018-01-09] MEDS: GABAPENTIN 400 MG CAP PO SCH ×2 (17:29→20:39)
[2018-01-10 06:53] VITALS: BP 122/64
--- NOTE | 2018-01-10 08:06 | BDS ---
REASON FOR ADMISSION: From the ED note dated 01/07/2018, the patient presented to the emergency department with suicidal ideation with plan to overdose on his medications. The patient reports he had been feeling suicidal for the last 3 weeks. The patient was admitted involuntarily on an M1 hold due to being a danger to himself. The patient was admitted for safety, crisis stabilization, and medication management. ADMITTING DIAGNOSES: 1. Major depressive disorder, recurrent episode, severe with anxious distress. 2. Posttraumatic stress disorder. 3. Nicotine dependence with withdrawal. ADMISSION PHYSICAL EXAM: The patient was seen on 01/08/2018, for an internal medicine consultation for medical clearance for inpatient Behavioral Health stay. The patient was medically cleared for inpatient psychiatric hospitalization and treatment. For further details, please refer to consultation note dated 01/08/2018. ADMISSION LABS: CBC from 01/08/2018, within normal limits. BNP from 01/08/2018 , within normal limits. Hemoglobin A1c from 01/09/2018, within normal limits. Liver function from 01/08/2018, within normal limits. Lipid panel from 2017, within normal limits except cholesterol was low at 121; LDL cholesterol calculated was low at 58; non-HDL cholesterol was low at 78. Toxicology screen from 01/08/2018, was negative for substances screened and negative for ethyl alcohol. From 01/09/18: Syphillis non-reactive, Hep B undetermined, Hep C negative, HIV 1&2 negative. Chlamydia screen from 01/10/18 pending. MAJOR PROCEDURES OR TESTS: None. HOSPITAL COURSE: The most prominent symptoms and behaviors while the patient was here were moderate anxiety and depression. Treatment modalities utilized were milieu and group therapy. Wellbutrin XL 150 mg p.o. q. day was discontinued, and Effexor XR 75 mg p.o. q. day was started to target anxiety and depression symptoms, was tolerated with no report of side effects. Gabapentin 600 mg p.o. t.i.d. was titrated to 800 mg p.o. t.i.d., was tolerated with no report of side effects and with good response. The patient has improved considerably, with no signs of psychiatric symptoms and no psychiatric symptoms expressed at time of discharge. The patient reports he has improved since admission, states to be in stable condition, feels safe to discharge, and he contracts for safety. Patient's response to treatment was good. There were no adverse or unexpected results of treatment. The patient was safe throughout his stay, active in treatment, attended and engaged in groups, and was appropriate with staff and other patients. The patient met with the treatment team prior to discharge to assess readiness to discharge and review discharge plan. The treatment team consensus is the patient is in stable condition, has a safe discharge plan, and is ready to discharge today. CONDITION AT DISCHARGE: Patient is in stable condition and is no longer a danger to self or others, and is not gravely disabled due to mental illness. Patient is no longer in need of inpatient level of care, and can be safely and effectively treated within the community. The patients level of risk at time of discharge is low. MSE: The patient is casually dressed and with good hygiene , and looks stated age. Patient is sitting, posture is upright, and position is relaxed. Patient appears awake, alert, and responds appropriately and reasonably during interview. Patient is engaged, relates well to interviewer, and emotional facial expression is appropriate to situation and changes appropriately with topic. Patient is cooperative, makes comfortable eye contact , and movements are voluntary, deliberate, coordinated, and smooth and even with no inappropriate movements. Patient makes laryngeal sounds effortlessly and shares conversation appropriately; pace of conversation is appropriate, and stream of talking is fluent; articulation is clear and understandable; word choice is effortless and appropriate for education level; completes sentences, occasionally pausing to think; rate and volume are appropriate for interview and setting. Patient reports mood as euthymic. Patients affect is stable with full variable range, congruent with mood, and appropriate to speech and circumstances. Patient has linear and logical thinking, with no loose associations, tangential thought, thought blocking, concrete thinking, or any other signs of formal thought disorder. Patient denies suicidal and homicidal ideation, and denies hallucinations and delusions. Patient appears to be a reliable historian with sound judgement and good insight into current condition. Patient has no apparent dysfunction in recent or remote memory noted , and no evidence of gross cognitive dysfunction noted at any point during the interview. DISCHARGE DIAGNOSES: 1. Major depressive disorder, recurrent episode, severe with anxious distress. 2. Posttraumatic stress disorder. 3. Nicotine dependence with withdrawal. CURRENT MEDICATIONS: After reviewing options, risks, and benefits, patient agrees to continue Effexor XR 75 mg p.o. q. day and gabapentin 800 mg p.o. t.i.d. The patient requests prescriptions for these medications at time of discharge. Prescriptions for 30 days are provided. Prescriptions are reviewed with the patient at time of discharge to ensure accuracy and patient understanding. DISPOSITION: The patient left hospital independently and voluntarily and plans to travel by bus back to his girlfriend's home in [place]. FOLLOWUP: implementation coordinator reports the appropriate outpatient follow-up services have been established and outpatient appointments have been scheduled. The patient received written instructions with times and dates of outpatient follow-up appointments. The following follow-up recommendations were provided to the patient at discharge: Continue psychotropic medications as prescribed and attend appointments as scheduled. Report any side effects to a psychiatric outpatient provider, a primary care provider, or other health adult daycare coordinator. Address any questions or problems concerning the psychotropic medications with a psychiatric outpatient provider, a primary care provider, or other health adult daycare coordinator. Contact [facility] or [facility], or go to the nearest emergency room, if you are ever a danger to yourself/others, or unable to care for yourself. As soon as possible, establish a routine medication management treatment with a psychiatric provider, establish routine therapy appointments, and follow-up with a primary care provider. LEGAL COURSE: The patient was admitted on an M1 hold. The patient was discharged today independently and voluntarily. ATTITUDE AT TIME OF DISCHARGE: The patients attitude was positive at time of discharge, and patient reports looking forward to discharging today. The patient reports he feels safe to discharge, is no longer a danger to himself or others, is in stable condition, and contracts for safety. Patient states he will continue medications as prescribed, and establish medication management treatment with an outpatient provider after discharge. Patient reports he understands the information that has been provided to him, and he understands, accepts, and agrees to psychotropic medications. Patient describes internal protective factors as the coping skills he has learned while hospitalized here, and he plans to continue to practice these coping skills after discharge. LABS AND RADIOLOGY STUDIES: Chlamydia screen from 01/10/18 pending. There were no other pending labs or studies at time of discharge. ADVANCE DIRECTIVES: There were no advance directives on file, and the patient was full code during this hospitalization. The following psychotropic medication treatment informed consent and recommendations were provided to the patient at time of discharge. Patient reports he understands, accepts, and agrees to the information that has been provided. PSYCHOTROPIC MEDICATION TREATMENT INFORMED CONSENT and RECOMMENDATIONS: Review nature of condition, diagnosis, and prognosis. Review nature and purpose of psychotropic medication treatment. Review type of psychotropic medications being prescribed. Review risk and benefits of psychotropic medication treatment. Review probable length of time will need to take medications. Review risk and benefits of not undergoing psychotropic medication treatment. Review alternative treatments to psychotropic medications. Review psychotropic medications contraindications, side effects, and importance of reporting any side effects to a psychiatric provider, primary care provider, or other health adult daycare coordinator. Review importance of her asking a psychiatric provider or primary care provider any questions or problems concerning the psychotropic medications. Review safety plan and the importance to contact [facility] or [facility] , or go to the nearest emergency room, if ever a danger to yourself/others, or unable to care for yourself. Recommend upon discharge to establish routine medication management treatment with a psychiatric provider, establish routine therapy appointments, and follow-up with a primary care provider. Verify patient understands, accepts, and agrees to the information that has been provided. SUICIDE ASSESSMENT FIVE-STEP EVALUATION AND TRIAGE (1) RISK FACTORS: (a) Suicidal behavior: age 19 attempted by overdose (b) Current/past psychiatric disorders: Major Depressive Disorder (c) Springer symptoms: none expressed or exhibited at time of discharge (d) Family history: none (e) Precipitants/Stressors/Interpersonal: none (f) Change in treatment: discharge from psychiatric hospital (g) Access to firearms: none (2) PROTECTIVE FACTORS: (a) Internal: coping skills learned while hospitalized (b) External: family, friends, and future (3) SUICIDAL INQUIRY: (a) Ideation: none (b) Plan: none (c) Behaviors: none; patient was safe throughout stay with no suicidal or parasuicidal behaviors (d) Intent: none (4) RISK LEVEL: Low: modifiable risk factors, strong protective factors; no suicidal or self-injurious ideation. Intervention: treatment plan to reduce symptoms including medications and therapy, provided emergency/crisis numbers, and established follow-up plan. /[id number]/MODL MTDD
[2018-01-10] MEDS: NICOTINE POLACRILEX 2 MG GUM B PRN ×4 (08:51→15:03)
[2018-01-10] MEDS: GABAPENTIN 400 MG CAP PO SCH ×2 (08:51→16:08)
[2018-01-10] MEDS: busPIRone 15 MG TAB PO SCH ×2 (08:51→16:08)
[2018-01-10] MEDS ORDERED: VENLAFAXINE XR 75 MG CAP PO SCH (09:00)
--- NOTE | 2018-01-10 10:56 | ASMTBHDC ---
Notes Note: Notes: CC confirmed all necessary follow up appts: Follow up with: [facility] [address], [facility] Next Medication Appt: med appt for [place], [address]. Mohit Carrillo has a 1:00 pm on Tuesday01/18/18. Check in at 12:45 pm Please let him know its a telehealth appt so he knows what to expect. January 26 (01/26/18) at 1:15pm with Litzy Roe Next Therapy Appt: Edger Feeder Barbara Dixon, 01/11/18 at 3:30 pm at [address]* Date Signed: 01/10/2018 10:55 AM Electronically Signed By:Rohith Schroeder
== END 2018-01-10 16:20 | disposition home or self-care (01) | DRG 885 ==
LOC: BBEH 01-08 14:39
PROVIDERS: ADMIT Psychiatry & Neurology Psychiatry; ATTEND Psychiatry & Neurology Psychiatry
DX: F33.2 Major depressive disorder, recurrent severe without psychotic features (principal); F41.9 Anxiety disorder, unspecified; F43.10 Post-traumatic stress disorder, unspecified; F17.213 Nicotine dependence, cigarettes, with withdrawal; I10 Essential (primary) hypertension
CPT/HCPCS: 80305; G0472; G0480